=== PATIENT | female | born 1950 | race Caucasian/White ===

== ENCOUNTER 2017-06-06 16:19 | Emergency (ER) | END 2017-06-06 20:05 | disposition home or self-care (01) ==

== ENCOUNTER 2018-09-28 15:18 | Emergency (ER) | payer OTHER ==
[~2018-09-28] VITALS: Ht 154.9 cm; Wt 56.6 kg
[~2018-09-28 15:18] MED LIST: ACET500C5 PO; BEN25 PO; DIAZ5TAB PO; METO10TA92 PO
[2018-09-28 15:28] VITALS: Ht 154.9 cm; Wt 56.6 kg
[2018-09-28] MEDS ORDERED: ACETAMINOPHEN 500 MG TAB PO STA (16:31)
--- NOTE | 2018-09-28 16:31 | ERD ---
ER Documentation Chief Complaint Chief Complaint epigastric pain lower back pain x4 wks HPI This is a 70-year-old female complains of epigastric and bilateral lower back pain for the last 4 weeks. She states that she has a history of sciatica, and it is similar to prior episodes, she denies any bowel bladder incontinence, she has not had any nausea or vomiting, she endorses prediabetes, she has not had any recent trauma or falls. She has no history of IV drug use. ROS All systems reviewed and are negative except as per history of present illness. Medications Home Meds Reported Medications Tramadol Hcl* (Ultram*) 50 Mg Tablet, 50 MG PO NEEDED PRN for PAIN, TAB 09/28/18 Discontinued Scripts Acetaminophen* (Tylophen*) 500 Mg Capsule, 1 CAP PO Q6H PRN for PAIN AND OR ELEVATED TEMP, #20 CAP Prov:PASILABAN,JOZEFAR F 06/06/17 Diphenhydramine Hcl* (Benadryl*) 25 Mg Cap, 25 MG PO Q6 PRN for ITCHING/RASH, #30 TAB Prov:PASILABAN,JOZEFAR F 06/06/17 Metoclopramide* (Reglan*) 10 Mg Tablet, 10 MG PO Q6 PRN for NAUSEA AND/OR VOMITING, #20 TAB Prov:PASILABAN,JOZEFAR F 06/06/17 Acetaminophen* (Tylophen*) 500 Mg Capsule, 1 CAP PO Q4 PRN for PAIN AND OR ELEVATED TEMP, #20 CAP Prov:MEIR HERRMANN PA-C 04/27/15 Diazepam* (Valium*) 5 Mg Tablet, 5 MG PO Q8 PRN for MUSCLE SPASMS, #10 TAB Prov:MEIR HERRMANN PA-C 04/27/15 Allergies Allergies: Coded Allergies: No Known Allergy (Unverified , 09/28/18) PMhx/Soc History of Surgery: Yes ( X 1) Anesthesia Reaction: No Hx Neurological Disorder: No Hx Respiratory Disorders: No Hx Cardiac Disorders: Yes (HTN) Hx Psychiatric Problems: No Hx Miscellaneous Medical Probl: Yes (DEPRESSION) Hx Alcohol Use: No Hx Substance Use: No Hx Tobacco Use: No Smoking Status: Never smoker Physical Exam Vitals Vital Signs Date Temp Pulse Resp B/P (MAP) Pulse Ox O2 O2 Flow FiO2 Time Delivery Rate 09/28/18 59 16 140/78 98 Room Air 18:00 (98) 09/28/18 71 16 119/62 96 Room Air 16:33 (81) 09/28/18 97.6 83 18 144/66 98 15:28 (92) Physical Exam Const: No acute distress Head: Atraumatic Eyes: Normal Conjunctiva ENT: Normal External Ears, Nose and Mouth. Neck: Full range of motion. No meningismus. Resp: Clear to auscultation bilaterally Cardio: Regular rate and rhythm, no murmurs Abd: Soft, non tender, non distended, no rebound or guarding. Normal bowel sounds Skin: No petechiae or rashes Back: No midline or flank tenderness Ext: No cyanosis, or edema Neur: Awake and alert Psych: Normal Mood and Affect Result Diagram: 09/28/18 1631 09/28/18 1631 Results 24 hrs Laboratory Tests Test 09/28/18 16:25 09/28/18 16:31 Urine Color STRAW Urine Clarity CLEAR Urine pH 6.0 Urine Specific Orange 1.005 Urine Ketones NEGATIVE mg/dL Urine Nitrite NEGATIVE mg/dL Urine Bilirubin NEGATIVE mg/dL Urine Urobilinogen NEGATIVE mg/dL Urine Leukocyte Esterase NEGATIVE Natalia/ul Urine Hemoglobin NEGATIVE mg/dL Urine Glucose NEGATIVE mg/dL Urine Total Protein NEGATIVE mg/dl White Blood Count 10.4 10^3/ul Red Blood Count 4.77 10^6/ul Hemoglobin 13.5 g/dl Hematocrit 41.5 % Mean Corpuscular Volume 87.0 fl Mean Corpuscular Hemoglobin 28.3 pg Mean Corpuscular Hemoglobin Concent 32.5 g/dl Red Cell Distribution Width 14.6 % Platelet Count 362 10^3/UL Mean Platelet Volume 9.4 fl Immature Granulocytes % 0.300 % Neutrophils % 61.1 % Lymphocytes % 29.5 % Monocytes % 5.4 % Eosinophils % 2.7 % Basophils % 1.0 % Nucleated Red Blood Cells % 0.0 /100WBC Immature Granulocytes # 0.030 10^3/ul Neutrophils # 6.4 10^3/ul Lymphocytes # 3.1 10^3/ul Monocytes # 0.6 10^3/ul Eosinophils # 0.3 10^3/ul Basophils # 0.1 10^3/ul Nucleated Red Blood Cells # 0.0 10^3/ul Sodium Level 143 mmol/L Potassium Level 4.1 mmol/L Chloride Level 107 mmol/L Carbon Dioxide Level 28 mmol/L Anion Gap 8 Blood Urea Nitrogen 13 mg/dl Creatinine 0.73 mg/dl Est Glomerular Filtrat Rate mL/min > 60 mL/min Glucose Level 130 mg/dl Calcium Level 9.5 mg/dl Total Bilirubin 0.3 mg/dl Direct Bilirubin 0.00 mg/dl Indirect Bilirubin 0.3 mg/dl Aspartate Amino Transf (AST/SGOT) 23 IU/L Alanine Aminotransferase (ALT/SGPT) 29 IU/L Alkaline Phosphatase 83 IU/L Troponin I < 0.012 ng/ml Total Protein 7.4 g/dl Albumin 4.3 g/dl Globulin 3.10 g/dl Albumin/Globulin Ratio 1.38 Lipase 313 U/L Current Medications Medications Dose Sig/Tara Start Time Status Last (Trade) Ordered Route PRN Stop Time Admin Dose Reason Admin 1,000 mg ONCE STAT 09/28/18 DC 09/28/18 Acetaminophen PO 16:31 09/28/18 16:36 (Tylenol 16:33 Tab) Ibuprofen 400 mg ONCE ONCE 09/28/18 DC 09/28/18 (Motrin) PO 17:00 09/28/18 16:36 17:01 Procedures/MDM 58-year-old female presents for evaluation of abdominal pain. Patient's musculoskeletal symptoms have not stabilized while they have been treated in the department and the patient's escalating pain issues will require further inpatient care. No evidence of cauda equina, cord compression, infiltrative, or infectious etiology at this time. Further w/u deferred to the inpatient team. 7:15 PM: patient's symptoms have improved. CT abd pelvis showed no acute findings. ECG showed NSR with normal intervals and no evidence of acute ischemia. At this point patient is stable for discharge home. At discharge she was smiling with a good appetite and in no acute distress. Departure Diagnosis: Primary Impression: Abdominal pain Abdominal location: unspecified location Qualified Codes: R10.9 - Unspecified abdominal pain Condition: Stable MARYCRUZ HORTA MD Sep 28, 2018 16:31
[2018-09-28] MEDS ORDERED: IBUPROFEN 200 MG TAB PO ONE (17:00)
[2018-09-28] MEDS ORDERED: TRAM50TA PO (17:52)
[2018-09-28 18:00] VITALS: BP 140/78; PULSE 59; RESP 16
== END 2018-09-28 20:00 | disposition home or self-care (01) ==
LOC: E/R 15:18
DX: R10.13 Epigastric pain (principal); I10 Essential (primary) hypertension
CPT/HCPCS: 36415; 74176; 80053; 81003; 83690; 84484; 85025; 93005; Z7502; Z7610